=== PATIENT | male | born 1975 | race Caucasian/White ===

== ENCOUNTER 2017-02-16 06:19 | Emergency (ER) | payer OTHER ==
--- NOTE | 2017-02-16 06:36 | CPEKG ---
Heart Rate: 78 RR Interval: 769 P-R Interval: 148 QRSD Interval: 90 QT Interval: 392 QTC Interval: 447 P [place]: 58 QRS [place]: 31 T Wave Albert [place]: 41 EKG Severity - NORMAL ECG - EKG Impression: SINUS RHYTHM Electronically Signed By: Cedrick Morris 16-Feb-2017 07:15:18
[2017-02-16 06:37] VITALS: RESP 18; TEMP 97.7
--- NOTE | 2017-02-16 06:52 | EDPHY ---
H & P Stated Complaint: cp to back for months off psych meds - Personal History Current Tetanus/Diphtheria Vaccine: Unsure Current Tetanus Diphtheria and Acellular Pertussis (TDAP): Unsure - Medical/Surgical History Hx Asthma: No Hx Chronic Respiratory Disease: No Hx Diabetes: No Hx Cardiac Disease: No Hx Renal Disease: No Hx Cirrhosis: No Hx Alcoholism: No Hx HIV/AIDS: No Hx Splenectomy or Spleen Trauma: No Other PMH: SCHIZOPHRENIA bipolar anxiety, PTSD - he states he has schizoaffective disorder. - Social History Smoking Status: Current every day smoker Time Seen by Provider: 02/16/17 06:49 HPI/ROS: Chief Complaint: Chest pain HPI: 41-year-old male with a history of PTSD, anxiety, bipolar went to [facility] seek refills for his medications. In his evaluation he reported that he had been having chest pain. Patient states been having chest pain constantly for about the last 6 months. He states he has not slept for the last 4 days. Denies being suicidal. Occasionally has vague nonspecific homicidal thoughts but currently does not. States that his discomfort is described as a tightness in the center of his chest which never goes away. The last time he was without any discomfort in his chest he states his months ago. Denies any shortness of breath. No fevers or chills. No nausea or vomiting. He is currently jenna for safety. ROS: 10 point Review of Systems is negative except as noted in the HPI. PMH: Hypertension Social History: No smoking, no alcohol, daily marijuana Family History: non-contributory Physical Exam: Gen: Awake, Alert, No Distress HEENT: Nose: no rhinorrhea Eyes: PERRLA, EOMI Mouth: Moist mucosa Neck: Supple, no JVD Chest: nontender, lungs clear to auscultation Heart: S1, S2 normal, no murmur Abd: Soft, non-tender, no guarding Back: no CVA tenderness, no midline tenderness Ext: no edema, non-tender Skin: no rash Neuro: CN II-XII intact, Sensation grossly intact, Strength 5/5 in bilateral upper and lower extremities (Cedrick Morris) Constitutional: Initial Vital Signs Temperature (C) 36.5 C 02/16/17 06:34 Heart Rate 83 02/16/17 06:34 Respiratory Rate 18 02/16/17 06:34 Blood Pressure 161/93 H 02/16/17 06:34 O2 Sat (%) 97 02/16/17 06:34 O2 Delivery Mode Room Air Allergies/Adverse Reactions: haloperidol [From Haldol] Allergy (Severe, Verified 02/09/16 22:12) Swelling/neck,face,throat haloperidol lactate [From Haldol] Allergy (Severe, Verified 02/09/16 22:12) Swelling/neck,face,throat Home Medications: Medication Instructions Recorded Klonopin 02/07/16 Zyprexa 02/07/16 Lisinopril 10 mg PO DAILY #30 tablet 02/10/16 LORazepam [Ativan] 1 mg PO Q6-8PRN PRN #7 tab 02/16/17 Medical Decision Making - Diagnostics EKG Interpretation: ECG time 6:34 a.m. sinus rhythm with a rate of 78, normal axis, normal intervals , no acute ST or T-wave changes. Impression: Normal ECG. (Cedrick Morris) ED Course/Re-evaluation: Patient signed out to Dr. Ribeiro pending troponin. If negative patient can go home for outpatient follow-up and stress testing. (Cedrick Morris) Patient seen by me at 8:00 a.m.. Labs are normal and the patient and I reviewed his labs and EKG findings. He tells me he has not slept in 4 days and he needs some sleep and medication for this. Again he tells me he has had continuous chest pain for at least 1 and half weeks. He also tells me he is not suicidal. Patient and I discussed treatment plan including criteria for return importance of follow-up and further evaluation. He expresses understanding and agreement (Jarrod Ribeiro) Differential Diagnosis: This appears to be more of a mental health and anxiety issue. He had normal cardiac workup and has had continuous chest discomfort for at least 1 and half weeks. No evidence for acute coronary syndrome (Jarrod Ribeiro) - Data Points Laboratory Results: Laboratory Results 02/16/17 06:25 02/16/17 06:25 02/16/17 02/16/17 02/16/17 06:25 06:25 06:25 WBC 10.85 10^3/uL H 10^3/uL (3.80-9.50) RBC 4.64 10^6/uL 10^6/uL (4.40-6.38) Hgb 14.9 g/dL g/dL (13.7-17.5) Hct 42.1 % % (40.0-51.0) MCV 90.7 fL fL (81.5-99.8) MCH 32.1 pg pg (27.9-34.1) MCHC 35.4 g/dL g/dL (32.4-36.7) RDW 13.8 % % (11.5-15.2) Plt Count 318 10^3/uL 10^3/uL (150-400) MPV 10.4 fL fL (8.7-11.7) Neut % (Auto) 65.5 % % (39.3-74.2) Lymph % (Auto) 24.7 % % (15.0-45.0) [place] % (Auto) 8.6 % % (4.5-13.0) Eos % (Auto) 0.4 % L % (0.6-7.6) Baso % (Auto) 0.5 % % (0.3-1.7) Nucleat RBC Rel Count 0.0 % % (0.0-0.2) Absolute Neuts (auto) 7.12 10^3/uL H 10^3/uL (1.70-6.50) Absolute Lymphs (auto) 2.68 10^3/uL 10^3/uL (1.00-3.00) Absolute Monos (auto) 0.93 10^3/uL H 10^3/uL (0.30-0.80) Absolute Eos (auto) 0.04 10^3/uL 10^3/uL (0.03-0.40) Absolute Basos (auto) 0.05 10^3/uL 10^3/uL (0.02-0.10) Absolute Nucleated RBC 0.00 10^3/uL 10^3/uL (0-0.01) Immature Gran % 0.3 % % (0.0-1.1) Immature Gran # 0.03 10^3/uL 10^3/uL (0.00-0.10) Sodium 139 mEq/L mEq/L (134-144) Potassium 4.1 mEq/L mEq/L (3.5-5.2) Chloride 102 mEq/L mEq/L (97-110) Carbon Dioxide 22 mEq/l mEq/l (22-31) Anion Gap 15 mEq/L mEq/L (8-16) BUN 7 mg/dL mg/dL (7-23) Creatinine 0.7 mg/dL mg/dL (0.7-1.3) Estimated GFR > 60 Glucose 122 mg/dL H mg/dL (70-100) Calcium 10.0 mg/dL mg/dL (8.5-10.4) Troponin I < 0.012 ng/mL ng/mL (0.000-0.034) Departure - Departure Disposition: Home, Routine, Self-Care Clinical Impression: Chest pain Condition: Good Instructions: Chest Pain (ED) Additional Instructions: Follow up at the [facility] to arrange to have an outpatient stress test performed. Follow up with [facility] for further management of your psychiatric care. Return to the emergency department for increasing chest pain, difficulty breathing, suicidal or homicidal thoughts, hallucinations, hopelessness, or any other concerns. Referrals: [facility],. [Clinic] - As per Instructions [facility],. [Clinic] - As per Instructions Prescriptions: LORazepam [Ativan] 1 mg PO Q6-8PRN PRN #7 tab PRN Reason: Sleep/Insomnia
[2017-02-16 06:56] LABS: % IMMATURE GRANULYOCYTES 0.3 % (0.0-1.1); ABSOLUTE IMMATURE GRANULOCYTES 0.03 10^3/uL (0.00-0.10); ADD DIFF? NO; ADD MORPH? NO; ADD SCAN? NO; ATYPICAL LYMPHOCYTE FLAG 10 (0-99); FRAGMENT RBC FLAG 0 (0-99); HEMATOCRIT 42.1 % (40.0-51.0); HEMOGLOBIN 14.9 g/dL (13.7-17.5); LEFT SHIFT FLG 0 (0-99); LIPEMIA HEMOLYSIS FLAG 90 (0-99); MEAN CELL HEMOGLOBIN 32.1 pg (27.9-34.1); MEAN CELL HEMOGLOBIN CONCENTR. 35.4 g/dL (32.4-36.7); MEAN CELL VOLUME 90.7 fL (81.5-99.8); MEAN PLATELET VOLUME 10.4 fL (8.7-11.7); PLATELET CLUMPS FLAG 10 (0-99); PLATELET COUNT 318 10^3/uL (150-400); RED BLOOD CELL COUNT 4.64 10^6/uL (4.40-6.38); RED CELL DISTRIBUTION WIDTH 13.8 % (11.5-15.2)
[2017-02-16 07:05] LABS: ANION GAP 15 mEq/L (8-16); CARBON DIOXIDE 22 mEq/l (22-31); CHLORIDE 102 mEq/L (97-110); CREATININE 0.7 mg/dL (0.7-1.3); GLOMERULAR FILTRATION RATE > 60; GLUCOSE 122 mg/dL (70-100); POTASSIUM 4.1 mEq/L (3.5-5.2); SODIUM 139 mEq/L (134-144)
[2017-02-16 08:30] VITALS: BP 152/89; PULSE 85; O2SAT 96
== END 2017-02-16 08:25 | disposition home or self-care (01) ==
LOC: EDUNIT#
DX: R07.9 Chest pain, unspecified (principal); F17.200 Nicotine dependence, unspecified, uncomplicated; I10 Essential (primary) hypertension